=== PATIENT | female | born 1990 | race Hispanic/Latino ===

== ENCOUNTER 2018-04-02 12:50 | Emergency (ER) | payer OTHER ==
--- NOTE | 2018-04-02 14:21 | EDPHYS ---
Physician Documentation [facility] Name: Hillary Shelby Age: 28 yrs Sex: Female : 1990 Arrival Date: 04/02/2018 Time: 12:51 Bed 28 Private MD: ED Physician Kam Galeas HPI: 04/02 13:12 This 28 yrs old Female presents to ER via Ambulatory with complaints of Sore kb Throat, Headache. 13:12 The patient presents with sore throat. The patient describes throat pain as constant. kb Onset: The symptoms/episode began/occurred 3 day(s) ago. Severity of symptoms: At their worst the symptoms were moderate, in the emergency department the symptoms are unchanged. Modifying factors: The symptoms are alleviated by nothing, the symptoms are aggravated by swallowing, Patient's oral intake status: limited fluid intake, limited food intake. Associated signs and symptoms: Pertinent positives: headache, Sore throat Pertinent negatives chest pain, chills, cough, diarrhea, dysphagia, earache, fever, flu-like symptoms, nausea, rhinorrhea, shortness of breath, vomiting. The patient has not experienced similar symptoms in the past. The patient has not recently seen a physician. 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 - Social history:: Smoking status: Patient/guardian denies using tobacco. - Ebola Screening: : Patient denies travel to an Ebola-affected area in the 21 days before illness onset. ROS: 13:11 Constitutional: Negative for fever, chills, and weight loss, Cardiovascular: Negative kb for chest pain, palpitations, and edema, Respiratory: Negative for shortness of breath, cough, wheezing, and pleuritic chest pain, Abdomen/GI: Negative for abdominal pain, nausea, vomiting, diarrhea, and constipation, MS/Extremity: Negative for injury and deformity, Skin: Negative for injury, rash, and discoloration. 13:11 ENT: Positive for sore throat. 13:11 Neuro: Positive for headache. Exam: 13:11 Constitutional: This is a well developed, well nourished patient who is awake, alert, kb and in no acute distress. Head/Face: Normocephalic, atraumatic. ENT: Nares patent. No nasal discharge, no septal abnormalities noted. Tympanic membranes are normal and external auditory canals are clear. Oropharynx with no redness, swelling, or masses, exudates, or evidence of obstruction, uvula midline. Mucous membranes moist. Neck: Trachea midline, no thyromegaly or masses palpated, and no cervical lymphadenopathy. Supple, full range of motion without nuchal rigidity, or vertebral point tenderness. No Meningismus. Chest/axilla: Normal chest wall appearance and motion. Nontender with no deformity. No lesions are appreciated. Cardiovascular: Regular rate and rhythm with a normal S1 and S2. No gallops, murmurs, or rubs. Normal PMI, no JVD. No pulse deficits. Respiratory: Lungs have equal breath sounds bilaterally, clear to auscultation and percussion. No rales, rhonchi or wheezes noted. No increased work of breathing, no retractions or nasal flaring. Abdomen/GI: Soft, non-tender, with normal bowel sounds. No distension or tympany. No guarding or rebound. No evidence of tenderness throughout. Skin: Warm, dry with normal turgor. Normal color with no rashes, no lesions, and no evidence of cellulitis. MS/ Extremity: Pulses equal, no cyanosis. Neurovascular intact. Full, normal range of motion. Neuro: Awake and alert, GCS 15, oriented to person, place, time, and situation. Cranial nerves II-XII grossly intact. Motor strength 5/5 in all extremities. Sensory grossly intact. Cerebellar exam normal. Normal gait. Vital Signs: 13:05 BP 120 / 65; Pulse 87; Resp 20; Temp 97.0; Pulse Ox 100% on R/A; Weight 113.4 kg (R); aj1 Height 5 ft. 4 in. (162.56 cm) (R); Pain 6/10; 14:25 BP 122 / 60; Pulse 84; Resp 17; Pulse Ox 99% on R/A; kr2 13:05 Body Mass Index 42.91 (113.40 kg, 162.56 cm) aj1 MDM: 13:07 Patient medically screened. kb 13:12 Data reviewed: vital signs, nurses notes. Data interpreted: Pulse oximetry: on room air kb is 100 %. Interpretation: normal. 14:20 Counseling: I had a detailed discussion with the patient and/or guardian regarding: the kb historical points, exam findings, and any diagnostic results supporting the discharge/admit diagnosis, lab results, the need for outpatient follow up, a family practitioner, to return to the emergency department if symptoms worsen or persist or if there are any questions or concerns that arise at home. 04/02 13:39 Order name: Flu kb 04/02 13:39 Order name: Strep kb 04/02 13:40 Order name: Influenza Screen (A ; Complete Time: 14:19 EDMS 04/02 13:40 Order name: Group A Streptococcus Rapid Sc; Complete Time: 14:19 EDMS 04/02 14:18 Order name: Throat Culture EDMS Administered Medications: No medications were administered Disposition: 16:52 Co-signature as Attending Physician, Kam Galeas MD. rn Disposition: 04/02/18 14:20 Discharged to Home. Impression: Acute pharyngitis. - Condition is Stable. - Discharge Instructions: Pharyngitis, [id number]. - Medication Reconciliation Form, Thank You Letter, Antibiotic Education, Prescription Opioid Use form. - Follow up: Emergency Department; When: As needed; Reason: Worsening of condition. Follow up: Private Physician; When: 2 - 3 days; Reason: Recheck today's complaints, Continuance of care, Re-evaluation by your physician. Signatures: Dispatcher [employer] EDND Gauri Cooney, KATTY-C INDUSTRIAL EQUIPMENT MECHANIC-Thuy Sim RN RN aj1 Kam Galeas MD MD rn Reaves, Karey, RN RN kr2 Corrections: (The following items were deleted from the chart) 14:27 14:20 04/02/2018 14:20 Discharged to Home. Impression: Acute pharyngitis. Condition is kr2 Stable. Forms are Medication Reconciliation Form, Thank You Letter, Antibiotic Education, Prescription Opioid Use. Follow up: Emergency Department; When: As needed; Reason: Worsening of condition. Follow up: Private Physician; When: 2 - 3 days; Reason: Recheck today's complaints, Continuance of care, Re-evaluation by your physician. kb
--- NOTE | 2018-04-02 14:21 | ER ---
Nurse's Notes [facility] Name: Hillary Shelby Age: 28 yrs Sex: Female : 1990 Arrival Date: 04/02/2018 Time: 12:51 Bed 28 Private MD: Diagnosis: Acute pharyngitis Presentation: 04/02 13:03 Presenting complaint: Patient states: Sore throat, headache, fatigue for the past 3 aj1 days. Patient reports that she is currently 31 weeks and she isn't sure what she can take. Transition of care: patient was not received from another setting of care. Onset of symptoms was March 30, 2018. Risk Assessment: Do you want to hurt yourself or someone else? Patient reports no desire to harm self or others. Initial Sepsis Screen: Does the patient meet any 2 criteria? No. Patient's initial sepsis screen is negative. Does the patient have a suspected source of infection? No. Patient's initial sepsis screen is negative. Care prior to arrival: None. 13:03 Method Of Arrival: Ambulatory aj1 13:03 Acuity: FRANCOIS 4 aj1 Triage Assessment: 13:05 General: Appears in no apparent distress. comfortable, Behavior is calm, cooperative, aj1 appropriate for age. Pain: Complains of pain in left aspect of posterior pharynx and right aspect of posterior pharynx Pain currently is 6 out of 10 on a pain scale. EENT: Reports difficulty swallowing sore throat. Neuro: Level of Consciousness is awake, alert, obeys commands. Cardiovascular: Patient's skin is warm and dry. Respiratory: Airway is patent Respiratory effort is even, unlabored, Respiratory pattern is regular, symmetrical. 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 - Social history:: Smoking status: Patient/guardian denies using tobacco. - Ebola Screening: : Patient denies travel to an Ebola-affected area in the 21 days before illness onset. Screenin:15 Abuse screen: Denies threats or abuse. Denies injuries from another. Nutritional kr2 screening: No deficits noted. Tuberculosis screening: No symptoms or risk factors identified. Fall Risk None identified. Assessment: 13:47 General: Appears in no apparent distress. uncomfortable, well groomed, well developed, kr2 Behavior is calm, cooperative, appropriate for age. Pain: Complains of pain in head and throat Pain does not radiate. Pain currently is 6 out of 10 on a pain scale. Quality of pain is described as aching, tender, Is continuous, Alleviated by medications, rest. Neuro: Level of Consciousness is awake, alert, obeys commands, Oriented to person, place, time, situation. Cardiovascular: Capillary refill < 3 seconds in bilateral fingers Patient's skin is warm and dry. Respiratory: Airway is patent Respiratory effort is even, unlabored, Breath sounds are clear bilaterally. GI: Abdomen is non-distended. EENT: Throat is pink. Derm: Skin is intact, is healthy with good turgor, Skin is pink, warm \T\ dry. Musculoskeletal: Circulation, motion, and sensation intact. 14:25 Reassessment: Patient appears in no apparent distress at this time. Patient and/or kr2 family updated on plan of care and expected duration. Pain level reassessed. Patient is alert, oriented x 3, equal unlabored respirations, skin warm/dry/pink. Vital Signs: 13:05 BP 120 / 65; Pulse 87; Resp 20; Temp 97.0; Pulse Ox 100% on R/A; Weight 113.4 kg (R); aj1 Height 5 ft. 4 in. (162.56 cm) (R); Pain 6/10; 14:25 BP 122 / 60; Pulse 84; Resp 17; Pulse Ox 99% on R/A; kr2 13:05 Body Mass Index 42.91 (113.40 kg, 162.56 cm) aj1 ED Course: 12:51 Patient arrived in ED. as 13:00 Gauri Cooney FNP-C is PHCP. kb 13:00 Kam Galeas MD is Attending Physician. kb 13:04 Triage completed. aj1 13:05 Arm band placed on Patient placed in an exam room. aj1 13:13 Lina Villeda, ANIKA is Primary Nurse. kr2 13:20 Bed in low position. Call light in reach. Side rails up X 1. Warm blanket given. Pillow jp3 given. 13:46 Strep Sent. kr2 13:46 Flu Sent. kr2 14:26 No provider procedures requiring assistance completed. Patient did not have IV access kr2 during this emergency room visit. Administered Medications: No medications were administered Outcome: 14:20 Discharge ordered by . darrell 14:27 Discharged to home ambulatory, with family. kr2 14:27 Condition: good 14:27 Discharge instructions given to patient, family, Instructed on discharge instructions, follow up and referral plans. Demonstrated understanding of instructions, follow-up care. 14:27 Patient left the ED. kr2 Signatures: Gauri Cooney, DOUGH RAISER-C DOUGH RAISER-CkThuy Duarte, RN RN aj1 Vika Cole Karey, RN RN kr2 Valentin Gracia jp3
== END 2018-04-02 14:27 | disposition home or self-care (01) ==
LOC: ER 12:50
DX: J02.9 Acute pharyngitis, unspecified (principal); Z3A.31 31 weeks gestation of pregnancy; Z88.5 Allergy status to narcotic agent
CPT/HCPCS: 87070; 87081; 87804; 99283